=== PATIENT | female | born 1985 | race Caucasian/White ===

== ENCOUNTER 2024-08-20 12:28 | Outpatient (CLI) | payer OTHER ==
[2024-08-20 13:06] LABS: #Basophils 0.04 10x3/uL (0.0-0.2); #Eosinophils 0.17 10x3/uL (0.0-0.5); #Monocytes 0.57 10x3/uL (0.0-1.1); #Neutrophils 7.18 10x3/uL (1.5-8.4); %Basophils 0.4 % (0.0-2.0); %Eosinophils 1.6 % (0.0-6.0); %Monocytes 5.3 % (0.0-10.0); %Neutrophils 66.5 % (40.0-75.0); Hematocrit 43.9 % (34.9-44.5); Hemoglobin 14.2 g/dL (12.0-15.5); Mean Corpuscular HGB CONC 32.3 g/dL (32.0-36.0); Mean Corpuscular Hemoglobin 28.3 pg (27.0-33.0); Mean Corpuscular Volume 87.5 fL (81.6-98.3); Mean Platelet Volume 9.9 fL (7.4-10.4); Platelet Count 214 10x3/uL (150-450); RBC Distribution Width 12.6 % (11.5-14.5); Red Blood Cell (RBC) Count 5.02 10x6/uL (3.90-5.03); White Blood Cell (WBC) Count 10.8 10x3/uL (3.5-10.5)
[2024-08-20 13:27] LABS: BHCG - Serum Negative (NEGATIVE); Pregs Control Background? CLEAR/WHITE (CLR/WHITE); Pregs Control Bar Appear? YES (CONTROL BAR)
[2024-08-20 13:33] LABS: Anion Gap 12 mmol/L (10-20); BUN (Urea Nitrogen) 10 mg/dL (7.0-18.7); Calc. Creatinine Clearance 0 mL/min (70-130); Carbon Dioxide 26 mmol/L (22-29); Chloride 108 mmol/L (98-107); Estimated GFR 90; Glucose 113 mg/dL (70-105); Sodium 142 mmol/L (136-145)
== END 2024-08-20 12:29 | disposition home or self-care (01) ==
LOC: CSHLAB 12:28
PROVIDERS: ATTEND Surgery
DX: Z01.818 Encounter for other preprocedural examination (principal); K64.4 Residual hemorrhoidal skin tags
CPT/HCPCS: 80048; 84703; 85025; 93005; 93010

== ENCOUNTER 2024-08-23 09:02 | Day surgery (SDC) | payer OTHER ==
[2024-08-20 13:26] VITALS: BMI 47.6
[2024-08-23] MEDS ORDERED: Lidocaine 2% 6 ML (Jelly) SYR ONE (09:45)
[2024-08-23] MEDS ORDERED: Bupivacaine/Epinephrine 0.25% 30 ML VIAL ONE (09:46)
[2024-08-23] MEDS ORDERED: Propofol 1,000 MG/100 ML VIAL IV ONE (10:05)
[2024-08-23] MEDS ORDERED: PROPOFOL 20 ML ONE (10:08)
[2024-08-23] MEDS ORDERED: fentaNYL 50 mcg/mL 1 mL Vial ONE ×2 (10:08→12:27)
[2024-08-23] MEDS ORDERED: Lidocaine 1% PF 5 ML VIAL ONE (10:09)
[2024-08-23] MEDS ORDERED: ceFOXitin 1 GM VIAL ONE (11:16)
[2024-08-23] MEDS ORDERED: Dexamethasone 4 mg/ml Vial ONE (11:55)
[2024-08-23] MEDS ORDERED: Ondansetron PF 4 MG/2 ML Vial ONE ×2 (11:55→12:27)
[2024-08-23] MEDS ORDERED: Ketorolac Tromethamine 30 MG (1 mL) VIAL ONE (12:05)
[2024-08-23] MEDS ORDERED: HYDROcodone/Acetaminophen 5/325 mg Tablet ONE (12:57)
== END 2024-08-23 13:42 | disposition home or self-care (01) ==
LOC: CSHSDC 09:02
PROVIDERS: ATTEND Surgery
PROC: 06BY0ZC Excision of Hemorrhoidal Plexus, Open Approach (ICD-10-PCS; principal; 2024-08-23)
DX: K64.4 Residual hemorrhoidal skin tags (principal); E11.9 Type 2 diabetes mellitus without complications; E66.9 Obesity, unspecified; Z68.42 Body mass index [BMI] 45.0-49.9, adult; Z90.49 Acquired absence of other specified parts of digestive tract; Z88.5 Allergy status to narcotic agent; Z91.018 Allergy to other foods; Z91.048 Other nonmedicinal substance allergy status; Z79.84 Long term (current) use of oral hypoglycemic drugs; Z79.899 Other long term (current) drug therapy
CPT/HCPCS: 88304; J0694; J1100; J1885; J2405; J2704; J3010